=== PATIENT | female | born 1990 | race Caucasian/White ===

== ENCOUNTER 2017-10-27 14:24 | Observation (INO) ==
[2017-10-27] MEDS ORDERED: ONDANSETRON 4 MG/2 ML VIAL IV PRN (15:15)
[2017-10-27] MEDS ORDERED: MEPERIDINE 50 MG/1 ML VIAL ONE (15:28)
[2017-10-27] MEDS: MEPERIDINE 50 MG/1 ML VIAL IV PRN (15:30)
[2017-10-27] MEDS: DEXTROSE 5% LACTATED RINGERS 1,000 ML IV SCH ×3 (15:30→23:50)
[2017-10-27 16:01] LABS: Apearance,Urine Slightly Hazy (Clear); Bacteria,Urine Occasional /HPF (Few); Bilirubin,Urine Negative (Negative); Blood, Urine Negative (Negative); Glucose,Urine (UA) Negative (Negative); Ketones,Urine Negative (Negative); Mucus,Urine Occasional /LPF (Occasional); Nitrite,Urine Negative (Negative); Protein,Urine Negative; RBC,Urine <1 /HPF (0-4); Squamous Epithelial Cell,Urine Few /HPF (0-10); Urine Color Yellow (Yellow); Urine Specific Gravity 1.023 (1.001-1.035); Urine Urobilinogen < 2.0 EU/DL (0.2-1.0); WBC,Urine 2 /HPF (0-6)
[2017-10-27 16:08] LABS: Basophils % 0.3 % (0.0-0.8); Eosinophils # 0.1 10*3/uL (0.0-0.87); Eosinophils % 0.8 % (0.00-10.9); Hematocrit 35.6 VOL% (35.7-47.0); Hemoglobin 12.2 GM/DL (12.0-16.0); Immature Granulocytes % 0.3 %; Immature Granulocytes Absolute 0.03 #; Lymphocytes # 1.6 10*3/uL (1.4-4.0); Lymphocytes % 16.1 % (21.3-54.2); Mean Corpuscular HGB Conc 34.3 GM/DL (32-36); Mean Corpuscular Hemoglobin 30 PG (27-34); Mean Corpuscular Volume 87.3 FL (87-102); Mean Platelet Volume 10.5 FL (9.6-12.0); Monocytes # 0.7 10*3/uL (0.11-0.8); Monocytes % 6.7 % (1.7-12.7); Neutrophils # 7.5 10*3/uL (1.4-7.4); Neutrophils % 75.8 % (38.7-73.9); Platelet Count 228 T/CUMM (130-400); Red Blood Count 4.08 MC/CUMM (3.8-5.5); Red Cell Distribution Width 12.3 % (9.3-17.3); White Blood Count 9.9 T/CUMM (4-12)
[2017-10-27] MEDS: HYDROmorphone 2 MG/1 ML VIAL IV PRN ×2 (16:15→20:25)
[2017-10-27] MEDS: PROMETHAZINE 25 MG/1 ML VIAL IM PRN ×2 (16:24→20:32)
[2017-10-27] MEDS: cefTRIAXone 250 MG in SODIUM CHLORIDE 0.9% 100 ML IV SCH (16:32)
[2017-10-28] MEDS: cefTRIAXone 250 MG in SODIUM CHLORIDE 0.9% 100 ML IV SCH (04:32)
[2017-10-28 11:45] VITALS: BP 102/58
[2017-10-28] MEDS: DEXTROSE 5% LACTATED RINGERS 1,000 ML IV SCH (11:54)
[2017-10-28] MEDS ORDERED: cefTRIAXone 250 MG in SYRINGE 1 EACH IV SCH (16:00)
== END 2017-10-28 13:10 | disposition home or self-care (01) ==
LOC: EDBD → N.OB
PROVIDERS: ADMIT Obstetrics & Gynecology; ATTEND Obstetrics & Gynecology

== ENCOUNTER → 2019-08-07 09:40 | Observation (INO) ==
[2019-08-06 20:06] LABS: Basophils % 0.4 % (0.0-0.8); Eosinophils # 0.1 10*3/uL (0.0-0.87); Eosinophils % 0.9 % (0.00-10.9); Hematocrit 42.4 VOL% (35.7-47.0); Hemoglobin 14.2 GM/DL (12.0-16.0); Immature Granulocytes % 0.4 %; Immature Granulocytes Absolute 0.04 #; Lymphocytes # 1.6 10*3/uL (1.4-4.0); Lymphocytes % 14.2 % (21.3-54.2); Mean Corpuscular HGB Conc 33.5 GM/DL (32-36); Mean Corpuscular Volume 86.7 FL (87-102); Mean Platelet Volume 10.4 FL (9.6-12.0); Monocytes % 5.1 % (1.7-12.7); Platelet Count 263 T/CUMM (130-400); Red Blood Count 4.89 MC/CUMM (3.8-5.5); Red Cell Distribution Width 12.5 % (9.3-17.3); White Blood Count 10.9 T/CUMM (4-12)
[2019-08-06 20:19] LABS: Albumin 3.5 G/DL (3.4-5.0); Bilirubin,Total 0.7 MG/DL (0.2-1.0); Calcium 8.8 MG/DL (8.5-10.1); Osmolality,Calculated 269.1 MOS/KG (273-304); Total Protein 7.5 G/DL (6.4-8.3)
[2019-08-06] MEDS: LACTATED RINGERS 1,000 ML IV SCH (20:30)
[2019-08-06 20:40] LABS: Hepatitis B Surface Ag Quant 0.13 Index; Hepatitis B Surface Ag Result Negative (Negative)
[2019-08-06 21:09] LABS: HIV Antigen/Antibody Result Nonreactive (Nonreactive)
[2019-08-07] MEDS: LACTATED RINGERS 1,000 ML IV SCH ×2 (01:04→04:21)
[2019-08-07 07:18] VITALS: BP 114/69
[~2019-08-07 09:40] MED LIST: ONDANSETRON 4 MG/2 ML VIAL IV PRN; PROMETHAZINE 25 MG/1 ML VIAL IM PRN
== END | disposition home or self-care (01) ==
LOC: N.OB
PROVIDERS: ADMIT Obstetrics & Gynecology; ATTEND Obstetrics & Gynecology

== ENCOUNTER 2019-10-03 15:53 | Observation (INO) ==
[2019-10-03] MEDS ORDERED: LACTATED RINGERS 1,000 ML IV ONE (16:06)
[2019-10-03 17:14] LABS: Basophils % 0.1 % (0.0-0.8); Eosinophils % 0.4 % (0.00-10.9); Hematocrit 34.9 VOL% (35.7-47.0); Hemoglobin 11.9 GM/DL (12.0-16.0); Immature Granulocytes % 0.5 %; Immature Granulocytes Absolute 0.05 #; Lymphocytes # 1.2 10*3/uL (1.4-4.0); Lymphocytes % 12.5 % (21.3-54.2); Mean Corpuscular HGB Conc 34.1 GM/DL (32-36); Mean Corpuscular Volume 88.1 FL (87-102); Mean Platelet Volume 10.7 FL (9.6-12.0); Monocytes % 5.3 % (1.7-12.7); Neutrophils % 81.2 % (38.7-73.9); Platelet Count 204 T/CUMM (130-400); Red Blood Count 3.96 MC/CUMM (3.8-5.5); Red Cell Distribution Width 13.4 % (9.3-17.3); White Blood Count 9.9 T/CUMM (4-12)
[2019-10-03 17:42] LABS: Albumin 2.8 G/DL (3.4-5.0); Bilirubin,Direct 0.11 MG/DL (0.0-0.20); Bilirubin,Indirect 0.3 MG/DL (0.0-1.0); Bilirubin,Total 0.4 MG/DL (0.2-1.0); Calcium 8.9 MG/DL (8.5-10.1); Free T4 (Free Thyroxine) 0.83 NG/DL (0.76-1.46); Osmolality,Calculated 276.5 MOS/KG (273-304); Thyroid Stimulating Hormone 0.658 uIU/ml (0.358-3.74); Total Protein 6.8 G/DL (6.4-8.3)
[2019-10-03] MEDS ORDERED: METOCLOPRAMIDE 10 MG TABLET PO PRN (19:37)
[2019-10-03 20:32] VITALS: BP 116/68
[2019-10-03] MEDS ORDERED: METOPROLOL SUCCINATE XL 100 MG TABLET PO SCH (21:00)
== END 2019-10-03 20:05 | disposition home or self-care (01) ==
LOC: N.TELES
PROVIDERS: ADMIT Obstetrics & Gynecology; ATTEND Obstetrics & Gynecology

== ENCOUNTER 2020-01-24 09:26 | Inpatient (IN) ==
[2020-01-24] MEDS ORDERED: hydrALAZINE 20 MG/1 ML VIAL IV ONE ×2 (10:37→11:00)
[2020-01-24] MEDS ORDERED: LACTATED RINGERS 1,000 ML IV ONE (10:37)
[2020-01-24 10:58] LABS: Basophils % 0.3 % (0.0-0.8); Eosinophils # 0.1 10*3/uL (0.0-0.87); Eosinophils % 0.6 % (0.00-10.9); Hematocrit 32.3 VOL% (35.7-47.0); Hemoglobin 10.8 GM/DL (12.0-16.0); Immature Granulocytes % 0.6 %; Immature Granulocytes Absolute 0.06 #; Lymphocytes # 1.4 10*3/uL (1.4-4.0); Lymphocytes % 13.2 % (21.3-54.2); Mean Corpuscular HGB Conc 33.4 GM/DL (32-36); Mean Corpuscular Volume 81.6 FL (87-102); Mean Platelet Volume 10.8 FL (9.6-12.0); Monocytes % 5.3 % (1.7-12.7); Platelet Count 215 T/CUMM (130-400); Red Blood Count 3.96 MC/CUMM (3.8-5.5); Red Cell Distribution Width 13.2 % (9.3-17.3); White Blood Count 10.3 T/CUMM (4-12)
[2020-01-24] MEDS ORDERED: LABETALOL 20 MG/4 ML SYRINGE IV ONE (11:03)
[2020-01-24 11:13] LABS: INR 0.9; PT Patient Result 10.2 SECS (9.8-11.9); Partial Thromboplastin Time 27.3 SECS (23.9-33.8)
[2020-01-24] MEDS ORDERED: FAMOTIDINE 20 MG/2 ML VIAL IV ONE (11:24)
[2020-01-24 11:33] LABS: Alanine Aminotransferase 14 U/L (13-56); Albumin 2.4 G/DL (3.4-5.0); Alkaline Phosphatase 101 U/L (45-117); Aspartate Amino Transferase 11 U/L (0-37); Bilirubin,Direct < 0.050 MG/DL (0.0-0.20); Bilirubin,Total < 0.39 MG/DL (0.2-1.0); Blood Urea Nitrogen 7 MG/DL (7-18); Calcium 8.8 MG/DL (8.5-10.1); Estimated Glom Filtration Rate 135 ML/MIN; Glucose 135 MG/DL (74-106); Osmolality,Calculated 272.8 MOS/KG (273-304); Total Protein 6.4 G/DL (6.4-8.3); Uric Acid 4.7 MG/DL (2.6-6.0)
[2020-01-24] MEDS ORDERED: MAGNESIUM SULF RIDER 100 ML IV ONE (12:09)
[2020-01-24] MEDS ORDERED: MAGNESIUM SULF DRIP 40 GM/1,000 ML ML IV SCH (12:30)
[2020-01-24] MEDS ORDERED: CITRIC ACID/SODIUM CITRATE 30 ML UDCUP PO ONE (13:25)
[2020-01-24] MEDS ORDERED: ceFAZolin 3,000 MG in SYRINGE 1 EACH IV ONE (13:25)
[2020-01-24] MEDS ORDERED: LACTATED RINGERS 1,000 ML IV SCH (13:30)
[2020-01-24] MEDS ORDERED: OXYTOCIN/LR 20 UNIT/1,000 ML BAG IV ONE ×3 (13:33→17:07)
[2020-01-24] MEDS ORDERED: TRANEXAMIC ACID 1,000 MG/10 ML VIAL ONE (13:36)
[2020-01-24] MEDS ORDERED: miSOPROStoL 200 MCG TABLET ONE (13:36)
[2020-01-24] MEDS ORDERED: METHYLERGONOVINE 0.2 MG/1 ML AMP ONE (13:37)
[2020-01-24] MEDS ORDERED: CARBOPROST TROMETHAMINE 250 MCG/ML AMP IM ONE (13:37)
[2020-01-24] MEDS ORDERED: ePHEDrine 50 MG/ML VIAL ONE (13:40)
[2020-01-24] MEDS ORDERED: MORPHINE 10 MG/10 ML VIAL ONE (13:41)
[2020-01-24] MEDS ORDERED: PHENYLEPHRINE 1 MG/10 ML SYRINGE IV ONE ×2 (14:22→14:50)
[2020-01-24] MEDS ORDERED: BUPIVACAINE SPINAL 0.75% 2 ML AMP SPINAL ONE (14:44)
[2020-01-24] MEDS ORDERED: ONDANSETRON 4 MG/2 ML VIAL ONE (14:44)
[2020-01-24] MEDS ORDERED: ROPIVACAINE 0.5% 30 ML VIAL ONE (14:57)
[2020-01-24 15:15] LABS: Bacteria,Urine Occasional /HPF (Few); Bilirubin,Urine Negative (Negative); Blood, Urine Negative (Negative); Glucose,Urine (UA) Negative (Negative); Ketones,Urine Negative (Negative); Mucus,Urine Occasional /LPF (Occasional); Nitrite,Urine Negative (Negative); Protein,Urine Negative; Squamous Epithelial Cell,Urine Occasional /HPF (0-10); Urine Appearance Slightly Hazy (Clear); Urine Color Yellow (Yellow); Urine Specific Gravity 1.017 (1.001-1.035); Urine Urobilinogen < 2.0 EU/DL (0.2-1.0)
[2020-01-24] MEDS: ACETAMINOPHEN 500 MG TABLET PO SCH ×2 (17:16→21:59)
[2020-01-24] MEDS: KETOROLAC 30 MG/1 ML VIAL IV SCH ×2 (17:20→21:59)
[2020-01-24] MEDS: diphenhydrAMINE 50 MG/1 ML VIAL IV PRN (19:03)
[2020-01-24] MEDS ORDERED: hydrOXYzine HCL 25 MG/1 ML VIAL IM PRN (21:46)
[2020-01-24] MEDS ORDERED: MEPERIDINE 50 MG/1 ML VIAL IV ONE (23:20)
[2020-01-25] MEDS ORDERED: diphenhydrAMINE 2% CREAM 28 GM TUBE TOP PRN (02:25)
[2020-01-25] MEDS: KETOROLAC 30 MG/1 ML VIAL IV SCH ×2 (04:10→11:14)
[2020-01-25] MEDS: ceFAZolin 1,000 MG in SYRINGE 1 EACH IV SCH ×2 (04:12→11:20)
[2020-01-25] MEDS: ACETAMINOPHEN 500 MG TABLET PO SCH (05:43)
[2020-01-25] MEDS ORDERED: oxyCODONE/ACETAMINOPHEN 5-325 MG TABLET PO PRN (06:21)
[2020-01-25] MEDS ORDERED: DOCUSATE SODIUM 100 MG CAPSULE PO PRN (06:22)
[2020-01-25 06:53] LABS: Basophils % 0.2 % (0.0-0.8); Eosinophils # 0.1 10*3/uL (0.0-0.87); Eosinophils % 0.6 % (0.00-10.9); Hematocrit 28.6 VOL% (35.7-47.0); Hemoglobin 9.4 GM/DL (12.0-16.0); Immature Granulocytes % 0.4 %; Immature Granulocytes Absolute 0.03 #; Lymphocytes # 1.1 10*3/uL (1.4-4.0); Lymphocytes % 12.3 % (21.3-54.2); Mean Corpuscular HGB Conc 32.9 GM/DL (32-36); Mean Corpuscular Volume 83.6 FL (87-102); Monocytes % 6.1 % (1.7-12.7); Neutrophils % 80.4 % (38.7-73.9); Platelet Count 194 T/CUMM (130-400); Red Blood Count 3.42 MC/CUMM (3.8-5.5); Red Cell Distribution Width 13.5 % (9.3-17.3); White Blood Count 8.5 T/CUMM (4-12)
[2020-01-25] MEDS: DOCUSATE SODIUM 100 MG CAPSULE PO SCH ×2 (08:08→20:43)
[2020-01-25] MEDS ORDERED: MAGNESIUM HYDROXIDE SUSP 30 ML UDCUP PO PRN (08:54)
[2020-01-25] MEDS ORDERED: SIMETHICONE CHEW 80 MG TABLET PO PRN (08:55)
[2020-01-25] MEDS ORDERED: METOPROLOL SUCCINATE XL 100 MG TABLET PO SCH (09:00)
[2020-01-25] MEDS: oxyCODONE/ACETAMINOPHEN 5-325 MG TABLET PO PRN ×3 (09:35→23:35)
[2020-01-25] MEDS ORDERED: FUROSEMIDE 20 MG/2 ML VIAL IV ONE (10:50)
[2020-01-25] MEDS ORDERED: FUROSEMIDE 40 MG/4 ML VIAL ONE (10:56)
[2020-01-25] MEDS ORDERED: FUROSEMIDE 40 MG/4 ML VIAL IV ONE (11:30)
[2020-01-25] MEDS ORDERED: ONDANSETRON 4 MG TABLET PO PRN (11:50)
[2020-01-25] MEDS: IBUPROFEN 800 MG TABLET PO PRN ×2 (17:09→23:35)
[2020-01-25] MEDS: diphenhydrAMINE 50 MG/1 ML VIAL IV PRN (20:32)
[2020-01-25] MEDS: METOPROLOL SUCCINATE XL 100 MG TABLET PO SCH (20:40)
[2020-01-26] MEDS: IBUPROFEN 800 MG TABLET PO PRN ×2 (06:26→11:48)
[2020-01-26 08:05] VITALS: BP 133/82
[2020-01-26] MEDS: METOPROLOL SUCCINATE XL 100 MG TABLET PO SCH (09:43)
[2020-01-26] MEDS: DOCUSATE SODIUM 100 MG CAPSULE PO SCH (09:43)
[2020-01-26] MEDS: oxyCODONE/ACETAMINOPHEN 5-325 MG TABLET PO PRN ×2 (10:03→15:35)
== END 2020-01-26 16:40 | disposition home or self-care (01) | DRG 785 ==
LOC: N.LDOUT 09:26 → N.LD 09:28 → N.OB 01-25 08:53
PROVIDERS: ADMIT Obstetrics & Gynecology; ATTEND Obstetrics & Gynecology